=== PATIENT | female | born 1950 | race Caucasian/White ===

== ENCOUNTER 2022-12-11 12:36 | Emergency (ER) | payer MEDICAID, MEDICARE ==
[~2022-12-11] VITALS: Ht 165.1 cm; Wt 63.0 kg
[2022-12-11 12:37] VITALS: O2SAT 99
[2022-12-11] MEDS ORDERED: NIRM1TAB PO (14:11)
[2022-12-11 14:14] VITALS: O2SAT 94
[2022-12-11 14:15] VITALS: BP 157/68; TEMP 102.4
[2022-12-11] MEDS ORDERED: ACETAMINOPHEN 325 MG TAB PO ONE (14:20)
== END 2022-12-11 14:33 | disposition home or self-care (01) ==
LOC: M ED 13:20
DX: U07.1 COVID-19 (principal); Z88.4 Allergy status to anesthetic agent